=== PATIENT | female | born 1990 | race Two or more races ===

== ENCOUNTER 2018-07-10 00:43 | Emergency (ER) | payer OTHER ==
[~2018-07-10] VITALS: Ht 160 cm; Wt 77.1 kg
[2018-07-10 00:49] VITALS: Ht 160 cm; Wt 77.1 kg
[2018-07-10 03:34] VITALS: BP 121/64
== END 2018-07-10 03:34 | disposition home or self-care (01) ==
LOC: ED 00:43
DX: J06.9 Acute upper respiratory infection, unspecified (principal); I88.9 Nonspecific lymphadenitis, unspecified
CPT/HCPCS: J1885

== ENCOUNTER 2018-07-27 22:49 | Emergency (ER) | payer OTHER ==
[~2018-07-27] VITALS: Ht 160 cm; Wt 75.3 kg
[2018-07-27 23:09] VITALS: Ht 160 cm; Wt 75.3 kg
[2018-07-28 00:50] VITALS: BP 113/58
== END 2018-07-28 00:57 | disposition home or self-care (01) ==
LOC: ED 22:49
DX: J11.1 Influenza due to unidentified influenza virus with other respiratory manifestations (principal); N39.0 Urinary tract infection, site not specified; Z98.82 Breast implant status
CPT/HCPCS: 87804; J1885; J7030

== ENCOUNTER 2018-07-30 14:18 | Emergency (ER) | payer OTHER ==
[~2018-07-30] VITALS: Ht 160 cm; Wt 76.0 kg
[2018-07-30 14:30] VITALS: BP 118/68; Ht 160 cm; Wt 76.0 kg
== END 2018-07-30 17:29 | disposition home or self-care (01) ==
LOC: ED 14:18
DX: J11.1 Influenza due to unidentified influenza virus with other respiratory manifestations (principal)

== ENCOUNTER 2018-09-09 21:25 | Emergency (ER) | payer OTHER ==
[~2018-09-09] VITALS: Ht 160 cm; Wt 75.9 kg
[2018-09-09 21:55] VITALS: Ht 160 cm; Wt 75.9 kg
[2018-09-09 22:52] LABS: BASOPHIL % 0.5 % (0-2); PLATELET COUNT 296 x10^3mcL (130-400)
[2018-09-09 23:02] LABS: CALCIUM 8.6 mg/dL (8.5-10.1); CARBON DIOXIDE 29.9 mmol/L (21-32); CHLORIDE SERUM 105 mmol/L (98-107); CREATININE SERUM 0.8 mg/dL (0.6-1.0); GFR1 > 60 mL/min; GLUCOSE SERUM 89 mg/dL (74-106); POTASSIUM SERUM 3.7 mmol/L (3.5-5.1); SODIUM SERUM 143 mmol/L (136-145)
[2018-09-09 23:06] LABS: ALKALINE PHOSPHATASE 67 U/L (46-116); ALT/SGPT 38 U/L (14-59); AST/SGOT 22 U/L (15-37); BILIRUBIN TOTAL 0.26 mg/dL (0.20-1.00); LIPASE 209 IU/L (73-393); TOTAL PROTEIN, SERUM 7.1 g/dL (6.4-8.2)
[2018-09-09 23:17] LABS: ALBUMIN 3.3 g/dL (3.4-5.0)
[2018-09-10 00:21] VITALS: BP 108/74
[2018-09-10 00:22] LABS: rbc morphology (normal/abnorm) ABNORMAL (NORMAL)
[2018-09-10 00:24] LABS: ovalocyte/elliptocyte 2+; tear drop cell (dacryocyte) 1+
== END 2018-09-10 00:21 | disposition home or self-care (01) ==
LOC: ED 21:25
PROVIDERS: Emergency Medicine
DX: K59.00 Constipation, unspecified (principal)
CPT/HCPCS: 36415

== ENCOUNTER 2018-11-27 18:54 | Emergency (ER) | payer OTHER ==
[~2018-11-27] VITALS: Ht 160 cm; Wt 75.7 kg
[2018-11-27 19:05] VITALS: BP 98/64; Ht 160 cm; Wt 75.7 kg
[2018-11-27 20:09] LABS: BASOPHIL % 0.3 % (0-2); PLATELET COUNT 286 x10^3mcL (130-400)
[2018-11-27 20:11] LABS: RED CELL DISTRIBUTION WIDTH 22.4 % (11.5-14.5)
[2018-11-27 20:19] LABS: CALCIUM 9.1 mg/dL (8.5-10.1); CHLORIDE SERUM 105 mmol/L (98-107); CREATININE SERUM 0.8 mg/dL (0.6-1.0); GFR1 > 60 mL/min; GLUCOSE SERUM 94 mg/dL (74-106); POTASSIUM SERUM 3.9 mmol/L (3.5-5.1); SODIUM SERUM 140 mmol/L (136-145)
[2018-11-27 20:23] LABS: ALBUMIN 3.6 g/dL (3.4-5.0); ALKALINE PHOSPHATASE 67 U/L (46-116); ALT/SGPT 22 U/L (14-59); AST/SGOT 17 U/L (15-37); BILIRUBIN TOTAL 0.78 mg/dL (0.20-1.00); TOTAL PROTEIN, SERUM 7.3 g/dL (6.4-8.2)
[2018-11-27 20:44] LABS: ovalocyte/elliptocyte 1+; rbc morphology (normal/abnorm) ABNORMAL (NORMAL); tear drop cell (dacryocyte) 1+
== END 2018-11-27 23:53 | disposition home or self-care (01) ==
LOC: ED 18:54
DX: B34.9 Viral infection, unspecified (principal)
CPT/HCPCS: 36415

== ENCOUNTER 2019-06-18 08:48 | Emergency (ER) | payer OTHER ==
[~2019-06-18] VITALS: Ht 160 cm; Wt 71.7 kg
[2019-06-18 09:08] VITALS: Ht 160 cm; Wt 71.7 kg
[2019-06-18 11:57] VITALS: BP 115/68
== END 2019-06-18 11:57 | disposition home or self-care (01) ==
LOC: ED 08:48
DX: J98.01 Acute bronchospasm (principal); J10.1 Influenza due to other identified influenza virus with other respiratory manifestations
CPT/HCPCS: 87804

== ENCOUNTER 2019-06-27 07:29 | Emergency (ER) | payer OTHER ==
[~2019-06-27] VITALS: Ht 160 cm; Wt 73.0 kg
[2019-06-27 07:31] VITALS: Ht 160 cm; Wt 73.0 kg
[2019-06-27 10:52] VITALS: BP 106/62
== END 2019-06-27 10:52 | disposition home or self-care (01) ==
LOC: ED 07:29
DX: J02.8 Acute pharyngitis due to other specified organisms (principal)